=== PATIENT | male | born 1955 | race Caucasian/White ===

== ENCOUNTER 2017-10-24 16:45 | Inpatient (IN) ==
[2017-10-24] MEDS ORDERED: Aluminum/Magnesium/Simethacone Susp 30 ML UDC PO PRN (17:57)
[2017-10-24] MEDS ORDERED: Acetaminophen 325 MG Tablet PO PRN (17:57)
[2017-10-24] MEDS ORDERED: Dextrose 50% in Water 50 ML Vial IV.PUSH PRN (17:59)
[2017-10-24] MEDS: Insulin NovoLOG Aspart Correctional Sugar Inj SQ SCH (21:28)
[2017-10-25] MEDS: Insulin NovoLOG Aspart Correctional Sugar Inj SQ SCH ×3 (07:49→21:23)
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
--- NOTE | 2017-10-25 11:34 | P.CONIM ---
History of Present Illness Service: Hospitalist Consult date: 10/25/17 Requesting Physician: [place] Reason for Consult: Medical management Primary Care Provider: UNKNOWN History of Present Illness: 62 year old male with schizophrenia transferred from [facility] under [place] Act for acute psychosis. History is obtained via ED record from [place] as patient acutely psychotic, paranoid, and aggressive. The patient had initially presented to the ER with multiple vague somatic complaints and was [place] Acted once he started exhibiting signs of acute psychosis. His brother was contacted who reported the patient had left the [facility] he was placed after being discharged from an inpatient psychiatry hospital in [place]. Apparently he had gone back to living his home where conditions were deplorable. Hospitalist services consulted for medical management. Unfortunately, I am unable to assess his medical history due to his acute psychosis. He simply yelled at me "diabetic neuropathy I need Motrin" and when I asked further questions or if I could examine him he became defensive. He aggressively got out of bed and started banging his chest saying "thud, thud, thud." Review of Systems unobtainable due to mental condition PMFSH - History History Provided By: Patient, Family Member, Medical Record - Medical / Surgical Hx Neg / Unobtainable Medical Problems Denied: Unable to Obtain - Substance Use History Substance History: No History of Abuse Medications and Allergies Active Medications: Active Medications Acetaminophen (Tylenol) 650 mg PO Q4H PRN PRN Reason: Pain 1-5 or Temp >101F Al Hydrox/Mg Hydrox/Simethicone (Mag-Al Plus Susp Liq) 30 ml PO Q6H PRN PRN Reason: DYSPEPSIA Al Hydroxide/Mg Hydroxide (Milk Of Magnesia Liq) 30 ml PO Q12H PRN PRN Reason: Mild Constipation Albuterol (Duoneb Neb (Prn)) 1 ampul NEB Q4HR NEB PRN PRN Reason: Wheezing/SOB Last Admin: 10/25/17 10:17 Dose: 1 ampul Dextrose (D50w Vial) 50 ml IV.PUSH UNSCH PRN PRN Reason: PER HYPOGLYCEMIA PROTOCOL Diphenhydramine HCl (Benadryl) 50 mg PO HS SHWETA Divalproex Sodium (Depakote Dr) 500 mg PO BID SH[facility]ET[facility] Glucagon (Glucagon Inj) 1 mg OTHER UNSCH PRN PRN Reason: for Hypoglycemia Protocol Insulin Aspart (Novolog Insulin Correctional Sugar Inj) 0 unit SQ ACHS SHWETA; Protocol Last Admin: 10/25/17 07:49 Dose: Not Given Lorazepam (Ativan) 1 mg PO Q6H PRN PRN Reason: ANXIETY AND/OR AGITATION Lurasidone HCl (Latuda) 80 mg PO DAILY [facility] Melatonin (Melatonin) 5 mg PO HS PRN PRN Reason: INSOMNIA Nicotine (Habitrol 7 Mg Patch.24 Hr) 1 patch T-DERMAL DAILY [facility] Patch Removal (Remove Old Patch) 1 each T-DERMAL DAILY SHWETA Last Admin: 10/25/17 11:06 Dose: Not Given Allergies Allergy/AdvReac Type Severity Reaction Status Date / Time No Known Allergies Allergy Uncoded 09/29/13 20:22 Exam Vital signs: Vital Signs 10/25/17 06:00 10/25/17 10:17 Temperature 98.1 F Pulse Rate 85 87 Respiratory Rate 16 20 Blood Pressure 170/94 H Pulse Oximetry 97 Narrative: Physical exam deferred as patient disorganized, psychotic, and aggressive Results - Labs Labs: Laboratory Results - last 24 hr 10/25/17 07:35 POC Glucose 126 H Assessment and Plan - Assessment (1) Schizophrenia Code(s): F20.9 - Schizophrenia, unspecified Status: Acute (2) Psychosis Code(s): F29 - Unspecified psychosis not due to a substance or known physiological condition Status: Acute - Plan 62 year old male admitted under [place] Act for acute psychosis. Hospitalist service consulted for medical management. Unfortunately, his acute mental state precluded any substantial history gathering or physical exam. He does not have a medication list with him and he has not been hospitalized here in the past. Apparently he has diabetes complicated by neuropathy for which a sliding scale insulin with Accuchecks has already been ordered per psychiatry. His blood pressure is elevated on initial set of vitals but, again, he is acutely agitated. I reviewed his blood work from the ED which was only significant for a mild leukocytosis with white count 11.4. His U/A, UDS, and BMP was otherwise unremarkable. Will continue to follow peripherally but for now his acute psychosis needs to be treated which is being managed by psychiatry. Will add Motrin as that is what he demanded for his neuropathy. Will continue to watch documented vitals to see if an antihypertensive needs to be added.
[2017-10-25] MEDS: Divalproex 500 MG DR Tablet PO SCH ×2 (12:38→21:29)
[2017-10-25] MEDS: Lurasidone 80 MG Tablet PO SCH (12:38)
[2017-10-25 13:08] LABS: Calcium 8.5 mg/dL (8.5-10.1); Carbon Dioxide 26.9 meq/L (21.0-32.0); Potassium 3.9 meq/L (3.5-5.1)
[2017-10-25 13:12] LABS: Chol/HDL Ratio 2.39 Ratio; HDL Cholesterol 31.3 mg/dL (40.0-60.0)
[2017-10-25] MEDS: Ibuprofen 600 MG Tablet PO PRN (13:43)
[2017-10-25 13:56] LABS: Hemoglobin A1c 6.4 % (4.3-6.0)
[2017-10-25] MEDS: LORazepam 1 MG Tablet PO PRN (21:27)
[2017-10-25] MEDS: Melatonin 5 MG Tablet PO PRN (21:28)
[2017-10-26] MEDS: Divalproex 500 MG DR Tablet PO SCH ×2 (08:50→21:31)
[2017-10-26] MEDS: Lurasidone 80 MG Tablet PO SCH (08:50)
[2017-10-26] MEDS: Insulin NovoLOG Aspart Correctional Sugar Inj SQ SCH ×4 (09:16→22:01)
[2017-10-26] MEDS: Ibuprofen 600 MG Tablet PO PRN (10:50)
[2017-10-26] MEDS: LORazepam 1 MG Tablet PO PRN ×2 (14:34→22:45)
--- NOTE | 2017-10-26 14:58 | P.PNPSY ---
Subjective Chief Complaint: Schizoaffective , Bipolar type Remarks: Medical record reviewed and discussed with nursing staff. JUAN Bajwa and I met with patient in his room. Patient has been called "[id number]" and has been advised to stop or that he would be placed on phone restrictions. He was sitting on the floor in his room surrounded by tylor crackers. 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 He has a brother and a nephew that appear to be his support system. He states he lives alone. Review of Systems Comments: Diabetic Mental Status Examination Appearance: Disheveled Consciousness: Alert Orientation: Person, Place Motor Activity: Normal gait Speech: Unremarkable Language: Adequate Fund of Knowledge: Inadequate Attention and Concentration: Adequate Memory: Unremarkable Mood: Anxious, Irritable Affect: Irritable, Anxious Thought Process & Associations: Disorganized Thought Content: Bizarre thinking, Delusional Hallucination Type: None Delusion Type: Paranoid, Other (Persecutory) Suicidal Ideation: No Suicidal Plan: No Suicidal Intention: No Homicidal Ideation: No Homicidal Plan: No Homicidal Intention: No Insight: Poor Judgment: Poor Assessment and Plan - Assessment (1) Schizoaffective disorder, bipolar type Code(s): F25.0 - Schizoaffective disorder, bipolar type Status: Acute - Plan Plan: Estimated LOS: [] days Medications have been re-started by the psychiatrist. Will continue to monitor the efficacy of the medication and aim towards stabilization. Justification for Continued Inpatient Stay: Moving patient to a less restrictive environment may lead to his decompensation.
--- NOTE | 2017-10-26 16:50 | P.PN ---
Subjective Interval history: Follow-up visit COPD, tobacco abuse, DM 2. Patient seen and examined today. Reports he is doing okay. States smoking 1PPD. Uses albuterol inhaler and nebulizer but still continues to smoke. Denies chest pain, palpitations, headaches, dizziness. Denies SOB/ dyspnea.Denies fevers, chills, n/v/d. Denies dysuria. Physical Exam Vital signs: Vital Signs 10/25/17 19:02 10/26/17 06:00 10/26/17 06:20 Temperature 98.1 F Pulse Rate 76 85 82 Respiratory Rate 19 16 20 Blood Pressure 170/94 H Pulse Oximetry 97 Narrative: GENERAL: This is a well-nourished, well-developed patient, in no apparent distress. SKIN: Warm and dry HEENT: Normocephalic. Pupils equal round and reactive. Nose without bleeding. Airway patent. NECK: Trachea midline. CARDIOVASCULAR: Regular rate and rhythm without murmurs, gallops, or rubs. RESPIRATORY: Coarse breath sounds. Mild expiratory wheeze. GASTROINTESTINAL: Abdomen soft, non-tender, nondistended. Bowel Sounds normoactive x4. MUSCULOSKELETAL: Extremities without clubbing, cyanosis, or edema. NEUROLOGICAL: Awake and alert. No focal neuro deficit. Moves all extremities. Normal speech. Results - Labs CBC & Chem 7: 10/25/17 12:23 Laboratory Results - last 24 hr 10/25/17 10/26/17 20:08 08:56 POC Glucose 94 Valproic Acid 46 L Assessment and Plan - Assessment (1) Schizophrenia Code(s): F20.9 - Schizophrenia, unspecified Status: Acute (2) Psychosis Code(s): F29 - Unspecified psychosis not due to a substance or known physiological condition Status: Acute - Plan 62 year old male with schizophrenia transferred from [facility] under [place] Act for acute psychosis. Psychosis, paranoia -Managed by psychiatry COPD, not in acute exacerbation Tobacco abuse -Counseled on smoking cessation. Verbalized understanding. -Duo nebs as needed. May DC home with Ventolin inhaler -Nicotine patch Borderline diabetes -Placed on diabetic diet -Hemoglobin A1c 6.4. Counseled. Chest pain -Denies any complaints of chest pain on exam. HTN -Norvasc 5 mg daily -Monitor BP trend DVT prop ambulatory Code Status: Full code Discussed Condition With: Patient, nurse Discharge Planning: DC disposition by primary team
[2017-10-26] MEDS: amLODIPine 5 MG Tablet PO SCH (18:23)
[2017-10-26] MEDS: Melatonin 5 MG Tablet PO PRN (21:32)
[2017-10-27] MEDS: Ibuprofen 600 MG Tablet PO PRN ×3 (04:43→20:35)
[2017-10-27] MEDS: Insulin NovoLOG Aspart Correctional Sugar Inj SQ SCH ×4 (08:00→20:33)
[2017-10-27] MEDS: Divalproex 500 MG DR Tablet PO SCH (08:35)
[2017-10-27] MEDS: Lurasidone 80 MG Tablet PO SCH (08:36)
[2017-10-27] MEDS: amLODIPine 5 MG Tablet PO SCH (08:36)
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
[2017-10-27] MEDS: LORazepam 1 MG Tablet PO PRN ×2 (13:01→20:34)
--- NOTE | 2017-10-27 15:36 | P.PN ---
Subjective Interval history: Follow-up visit COPD, tobacco abuse, DM 2, HTN. Patient seen and examined today. Reports he is doing okay. States he is congested and does not know why because he has not been smoking. Denies chest pain, palpitations, headaches, dizziness. Denies SOB/ dyspnea.Denies fevers, chills, n/v/d. Denies dysuria. Physical Exam Vital signs: Vital Signs 10/26/17 17:00 10/26/17 22:22 10/27/17 05:36 Temperature 98.3 F Pulse Rate 72 78 78 Respiratory Rate 16 18 16 Blood Pressure 138/67 Pulse Oximetry 97 10/27/17 06:00 10/27/17 15:33 Temperature 98.2 F 97.5 F L Pulse Rate 72 71 Respiratory Rate 20 18 Blood Pressure 142/79 H 131/68 Pulse Oximetry 95 96 Narrative: GENERAL: This is a well-nourished, well-developed patient, in no apparent distress. SKIN: Warm and dry HEENT: Normocephalic. Pupils equal round and reactive. Nose without bleeding. Airway patent. NECK: Trachea midline. CARDIOVASCULAR: Regular rate and rhythm without murmurs, gallops, or rubs. RESPIRATORY: Coarse breath sounds. Mild expiratory wheeze. GASTROINTESTINAL: Abdomen soft, non-tender, nondistended. Bowel Sounds normoactive x4. MUSCULOSKELETAL: Extremities without clubbing, cyanosis, or edema. NEUROLOGICAL: Awake and alert. No focal neuro deficit. Moves all extremities. Normal speech. Results - Labs CBC & Chem 7: 10/25/17 12:23 Laboratory Results - last 24 hr 10/27/17 11:35 POC Glucose 113 H Assessment and Plan - Assessment (1) Schizophrenia Code(s): F20.9 - Schizophrenia, unspecified Status: Acute (2) Psychosis Code(s): F29 - Unspecified psychosis not due to a substance or known physiological condition Status: Acute - Plan 62 year old male with schizophrenia transferred from [facility] under Brizuela Act for acute psychosis. Psychosis, paranoia -Managed by psychiatry COPD, not in acute exacerbation Tobacco abuse -Counseled on smoking cessation. Verbalized understanding. -Duo nebs as needed. May DC home with Ventolin inhaler -Nicotine patch -Ventolin PRN, Singulair at Borderline diabetes -Placed on diabetic diet -Hemoglobin A1c 6.4. Counseled. -He takes metformin at home will restart 500mg BID Chest pain -Denies any complaints of chest pain on exam. HTN -Norvasc 5 mg daily -Monitor BP trend -Improving -Clonidine PRN DVT prop ambulatory Stable from Hospitalist standpoint. We will sign off. Reconsult as needed. Thank you. Code Status: Full Code Discussed Condition With: Patient, nursing Discharge Planning: DC disposition by primary team
[2017-10-27] MEDS: Divalproex 250 MG DR Tablet PO SCH (20:34)
[2017-10-27] MEDS: Montelukast 10 MG Tablet PO SCH (20:58)
[2017-10-28] MEDS: Insulin NovoLOG Aspart Correctional Sugar Inj SQ SCH ×4 (08:09→20:43)
[2017-10-28] MEDS: Divalproex 250 MG DR Tablet PO SCH (08:20)
[2017-10-28] MEDS: amLODIPine 5 MG Tablet PO SCH (08:21)
[2017-10-28] MEDS: LORazepam 1 MG Tablet PO PRN ×2 (08:21→18:26)
[2017-10-28] MEDS: Ibuprofen 600 MG Tablet PO PRN ×2 (08:22→19:13)
[2017-10-28] MEDS: Lurasidone 80 MG Tablet PO SCH (08:22)
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
--- NOTE | 2017-10-28 11:20 | P.TTN ---
- Patient Problems Problems: 1. Discharge planning 2. Medication compliance 3. Knowledge deficit 4. Lack of coping skills - Progress Toward Goals Provider Present: Dr. Lydia Galan (Dr. Galan is titrating Depakote and has requested that perhaps the patient's brother can visit to assess for progress) Psychiatric Counselors Present: Alverto Calzada Jr., RCSWU (Patient labile, disorganized, unable or unwilling to maintain appropriate conversation.) Group Spec/RT/OT/MEAD Present: ALYCE Veliz (Patient attends select groups ) - Documentation Teaching Recipient: Patient
[2017-10-28] MEDS: Divalproex 500 MG DR Tablet PO SCH (20:45)
[2017-10-28] MEDS: Montelukast 10 MG Tablet PO SCH ×2 (20:45→20:53)
[2017-10-29] MEDS: LORazepam 1 MG Tablet PO PRN ×3 (00:07→21:46)
[2017-10-29] MEDS: Melatonin 5 MG Tablet PO PRN ×2 (00:08→21:47)
[2017-10-29] MEDS: Insulin NovoLOG Aspart Correctional Sugar Inj SQ SCH ×4 (08:00→20:36)
[2017-10-29] MEDS: Ibuprofen 600 MG Tablet PO PRN ×2 (08:30→17:43)
[2017-10-29] MEDS: Divalproex 500 MG DR Tablet PO SCH ×2 (08:30→20:25)
[2017-10-29] MEDS: amLODIPine 5 MG Tablet PO SCH (08:30)
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
[2017-10-29] MEDS: Acetaminophen 325 MG Tablet PO PRN (14:18)
[2017-10-29] MEDS: Montelukast 10 MG Tablet PO SCH (20:25)
[2017-10-30] MEDS: Acetaminophen 325 MG Tablet PO PRN (00:32)
[2017-10-30] MEDS: amLODIPine 5 MG Tablet PO SCH (08:30)
[2017-10-30] MEDS: Divalproex 500 MG DR Tablet PO SCH (08:30)
[2017-10-30] MEDS: LORazepam 1 MG Tablet PO PRN ×2 (08:46→15:08)
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
[2017-10-30] MEDS: Insulin NovoLOG Aspart Correctional Sugar Inj SQ SCH ×2 (12:07→12:24)
== END 2017-10-30 16:30 | disposition left against medical advice (07) ==
LOC: H270 17:50
PROVIDERS: ADMIT Psychiatry & Neurology Psychiatry; ATTEND Psychiatry & Neurology Psychiatry
CPT/HCPCS: 80048; 80061; 80164; 82948; 82962; 83036; 94640; 94664; 94665; J1815; Q0163